=== PATIENT | male | born 2000 | race Caucasian/White ===

== ENCOUNTER 2020-09-30 09:46 | Emergency (ER) | payer BC, OTHER ==
[2020-09-30 09:58] VITALS: BP 133/75; PULSE 72; O2SAT 100
--- NOTE | 2020-09-30 10:06 | ERPHSYRPT ---
- History of Present Illness Source: patient Exam Limitations: no limitations Patient Subjective Stated Complaint: finger injury Triage Nursing Assessment: pt to ED c/o finger injury to R hand index finger. states he was unloading a truck and got it smashed on metal. rates 9/10 pain. limited ROM d/t pain. was in slpint on arrival from home, states that has been helping. bruising noted to fingernail bed of injured finger. unable to see cap refil, but warm and no loss of sensation distal to injury. some swelling also noted throughout finger. Physician History: Patient is a healthy 20-year-old male with right index finger injury. Injury occurred 2 days ago. Patient had his right index finger tip crushed between 2 metal objects. Has been using Tylenol for pain and has been icing it but pain is persistent. Pain with movement and touch. Patient is able to flex and extend his PIP joint. This obviously causes a lot of pain but still able. No previous injury to the finger. Occurred: days ago (2) Method of Injury: direct blow Quality: constant Severity of Pain-Max: severe Severity of Pain-Current: moderate Extremities Pain Location: 2nd finger: right (Diffuse) Modifying Factors: Improves With: movement Allergies/Adverse Reactions: No Known Drug Allergies Allergy (Unverified 09/30/20 09:58) Home Medications: No Reportable Medications [No Reported Medications] 09/30/20 [History] Hx Tetanus, Diphtheria Vaccination/Date Given: Yes Hx Influenza Vaccination/Date Given: Yes Hx Pneumococcal Vaccination/Date Given: No Immunizations Up to Date: Yes Travel Risk - International Travel Have you traveled outside of the country in past 3 weeks: No - Coronavirus Screening Are you exhibiting any of the following symptoms?: No Close contact with a COVID-19 positive Pt in past 14-21 Days: No - Review of Systems Constitutional: No Fever, No Chills Eyes: No Symptoms Ears, Nose, & Throat: No Symptoms Respiratory: No Cough, No Dyspnea Cardiac: No Chest Pain, No Edema, No Syncope Abdominal/Gastrointestinal: No Abdominal Pain, No Nausea, No Vomiting, No Diarrhea Genitourinary Symptoms: No Dysuria Musculoskeletal: Joint Pain, Joint Swelling, No Back Pain, No Neck Pain Skin: Decubiti, Other (Ecchymosis), No Rash Neurological: No Dizziness, No Focal Weakness, No Sensory Changes Psychological: No Symptoms Endocrine: No Symptoms All Other Systems: Reviewed and Negative - Past Medical History Pertinent Past Medical History: Yes Respiratory History: Asthma Psycho-Social History: Anxiety - Past Surgical History Past Surgical History: No - Social History Smoking Status: Never smoker Exposure to second hand smoke: No Drug Use: none Patient Lives Alone: No - Nursing Vital Signs Nursing Vital Signs: Initial Vital Signs Temperature 98.4 F 09/30/20 09:50 Pulse Rate 72 09/30/20 09:50 Respiratory Rate 18 09/30/20 09:50 Blood Pressure 133/75 09/30/20 09:50 O2 Sat by Pulse Oximetry 100 09/30/20 09:50 Pain Scale Pain Intensity 9 - Physical Exam General Appearance: alert Eyes, Ears, Nose, Throat Exam: moist mucous membranes Neck Exam: non-tender, supple Cardiovascular/Respiratory Exam: chest non-tender, normal breath sounds, regular rate/rhythm, no respiratory distress Abdominal Exam: non-tender, No guarding Back Exam: normal inspection, No vertebral tenderness Hand Exam: ecchymosis, limited ROM, soft tissue tenderness, swelling (Mild ecchymosis noted on dorsum surface and fingertip soft tissue and under nail bed.), No nail injury Neuro/Tendon Exam: normal sensation, normal motor functions Mental Status Exam: alert, oriented x 3, cooperative Skin Exam: normal color, warm, dry SpO2 Interpretation: normal SpO2: 100 - Course Nursing assessment & vital signs reviewed: Yes - Radiology Exams Hand X-ray Interpretation: Discussed w/ radiologist, Negative, No Fracture Ordered Tests: Active Orders 24 hr Category Date Time Status FINGER(S) Stat Exams 09/30/20 10:11 Completed - Progress Progress: improved Progress Note: 09/30/20 10:27 Finger x-ray. Patient already has a splint. X-ray negative. Will advise conservative treatment. Work note for light duty. Anti-inflammatories for pain. Counseled pt/family regarding: diagnosis, need for follow-up, rad results - Departure Departure Disposition: Home Clinical Impression: Crushing injury of finger of right hand Condition: Stable Critical Care Time: No Instructions: Crush Injury (DC) Additional Instructions: Rest. Splint. Ice. Elevation. Motrin or Aleve for pain. Follow-up with Worker's Comp. physician. Work note for light duty x1 week. Return to ER if worse. Forms: Work/School Release Form
--- NOTE | 2020-09-30 10:19 | XRAY ---
Indication: Crush injury. Comparison: None 3 view right 2nd finger obtained. No bony, articular, or soft tissue abnormalities.
== END 2020-09-30 10:49 | disposition home or self-care (01) ==
LOC: ED 09:46
DX: S67.190A Crushing injury of right index finger, initial encounter (principal); M79.644 Pain in right finger(s)
CPT/HCPCS: 73140; 99283